=== PATIENT | female | born 1995 | race Hispanic/Latino ===

== ENCOUNTER 2022-07-23 19:47 | Emergency (ER) | payer OTHER ==
[~2022-07-23] VITALS: Ht 157.5 cm; Wt 78.9 kg
[2022-07-23] MEDS ORDERED: AMLODIPINE BESYLATE 10 MG TAB PO ONE (20:15)
[2022-07-23] MEDS ORDERED: ASPIRIN 325 MG TAB PO ONE (20:15)
[2022-07-23] MEDS ORDERED: AMLODIPINE BESYLATE 10 MG TAB ONE (20:23)
[2022-07-23] MEDS ORDERED: SODIUM CHLORIDE 0.9% 1000ML 1,000 ML ONE (20:26)
[2022-07-23] MEDS ORDERED: SODIUM CHLORIDE 0.9% 1000ML 1,000 ML IV ONE (20:30)
[2022-07-23] MEDS ORDERED: AMLODIPINE BESYL5 MG PO (21:50)
== END 2022-07-23 22:24 | disposition home or self-care (01) ==
LOC: FSED 19:58
DX: R06.02 Shortness of breath (principal); R07.9 Chest pain, unspecified; I10 Essential (primary) hypertension
CPT/HCPCS: 71046; 80053; 81003; 81025; 82553; 84484; 85025; 85379; 93005; 99284; J7030